=== PATIENT | male | born 1995 | race Caucasian/White ===

== ENCOUNTER 2021-10-05 13:42 | Emergency (ER) | payer OTHER ==
[~2021-10-05] VITALS: Ht 170.2 cm; Wt 78.0 kg
[2021-10-05 14:39] LABS: CHLORIDE 101 mEq/L (98-107)
[2021-10-05 14:45] LABS: BASOPHILS % 0.3 % (0.0-2.0); EOSINOPHILS % 0.1 % (0.0-5.0); HEMATOCRIT. 38.3 % (42.0-52.0); HEMOGLOBIN. 13.2 g/dL (14.0-18.0); LYMPHOCYTES % 20.6 % (20.0-50.0); MEAN CORPUSCULAR HEMOGLOBIN 29.9 pg (28.0-32.0); MEAN CORPUSCULAR VOLUME 86.6 fL (80.0-94.0); MEAN PLATELET VOLUME 7.6 fl (7.4-10.4); MONOCYTES % 11.5 % (2.0-8.0); NEUTROPHILS % 67.5 % (40.0-76.0); PLATELET 215 x1000/uL (130-400); RED BLOOD CELL COUNT 4.43 mill/uL (4.7-6.1); RED CELL DISTRIBUTION WIDTH 13.5 % (11.6-14.6)
[2021-10-05 15:17] LABS: CLARITY URINE CLEAR (CLEAR); COLOR URINE DARK YELLOW (YELLOW); KETONES URINE 1+ (NEGATIVE); LEUKOCYTE ESTERASE URINE NEGATIVE (NEGATIVE); NITRITE URINE NEGATIVE (NEGATIVE); OCCULT BLOOD URINE 2+ (NEGATIVE); PROTEIN URINE 2+ (NEGATIVE); SPECIFIC GRAVITY URINE 1.026 (1.005-1.030); UROBILINOGEN URINE 0.2 E.U./dL (0.2-1.0)
[2021-10-05] MEDS ORDERED: IOHEXOL-300 100 ML BOTTLE ONE (15:47)
[2021-10-05] MEDS ORDERED: METR500T MT (16:10)
[2021-10-05] MEDS ORDERED: CEPH500C2 MT (16:10)
[2021-10-05] MEDS ORDERED: ONDA4TAB5 MT (16:10)
[2021-10-05] MEDS ORDERED: CEFTRIAXONE 1 G PREMIX 50 ML IV ONE (16:15)
[2021-10-05] MEDS ORDERED: ONDANSETRON 4MG ODT PO ONE (16:15)
[2021-10-05] MEDS ORDERED: ACETAMINOPHEN 500MG TABLET PO ONE (16:15)
[2021-10-05] MEDS ORDERED: METRONIDAZOLE 500 MG PREMIX 100 ML IV NR (16:30)
[2021-10-05 17:35] VITALS: BP 129/86
== END 2021-10-05 17:36 | disposition home or self-care (01) ==
LOC: ER 13:42
DX: K52.9 Noninfective gastroenteritis and colitis, unspecified (principal); Z20.822 Contact with and (suspected) exposure to COVID-19
CPT/HCPCS: 36415; 74177; 80053; 81003; 83690; 85025; 96365; 99285; J0696; J3490; Q0162; Q9967

== ENCOUNTER 2025-07-07 21:29 | Emergency (ER) | payer OTHER ==
[~2025-07-07] VITALS: Ht 172.7 cm; Wt 73.0 kg
[~2025-07-07 21:29] MED LIST: CEPH500C2 MT; METR500T MT; ONDA4TAB5 MT
[2025-07-07 21:36] VITALS: BP 140/90; PULSE 77; RESP 19; TEMP 98.2; O2SAT 98
== END 2025-07-07 21:55 | disposition left against medical advice (07) ==
LOC: ER 21:29
DX: R11.2 Nausea with vomiting, unspecified (principal); T51.91XA Toxic effect of unspecified alcohol, accidental (unintentional), initial encounter; Y92.89 Other specified places as the place of occurrence of the external cause
CPT/HCPCS: 99283